=== PATIENT | male | born 1995 | race Caucasian/White ===

== ENCOUNTER 2021-05-21 14:49 | Emergency (ER) | payer OTHER ==
[2021-05-21 15:07] VITALS: TEMP 98.3; BMI 24.4
[2021-05-21 17:05] LABS: BASO % 0.6 % (0-2.0); EOS % 2.7 % (0-4.5); HEMATOCRIT 43.7 % (35.4-49); LYMPH % 23.3 % (8-40); MCH 30.8 pg (25.7-33.7); MCHC 34.3 g/dl (32.0-35.9); MEAN CELL VOLUME 89.8 fl (80-96); MEAN PLT VOLUME 7.8 fl (7.5-11.1); MONO % 8.3 % (3.8-10.2); NEUT % 65.1 % (42.8-82.8); PLATELET COUNT 388 10^3/uL (134-434); RBC 4.86 M/mm3 (4.00-5.60); WHITE BLOOD COUNT 7.5 K/mm3 (4.0-10.0)
[2021-05-21 17:23] LABS: CALCIUM 9.1 mg/dL (8.5-10.1)
[2021-05-21 17:24] LABS: BLOOD UREA NITROGEN 8.6 mg/dL (7-18)
[2021-05-21 17:29] LABS: BILIRUBIN,TOTAL 0.3 mg/dL (0.2-1); TOT PROT 8.3 g/dl (6.4-8.2)
[2021-05-21 19:14] VITALS: BP 120/74; PULSE 82
== END 2021-05-21 19:14 | disposition home or self-care (01) ==
LOC: JER 14:49
DX: K62.5 Hemorrhage of anus and rectum (principal); R19.7 Diarrhea, unspecified
CPT/HCPCS: 36415; 80053; 82272; 85025; 86140; 87804; 99283-25; C9803; U0003; U0005